=== PATIENT | male | born 1995 | race African-American/Black ===

== ENCOUNTER 2020-07-08 07:52 | Emergency (ER) | payer OTHER ==
[~2020-07-08] VITALS: Ht 175.3 cm; Wt 99.1 kg
[2020-07-08] MEDS ORDERED: methocarbamoL 750 MG TAB PO ONE (08:25)
[2020-07-08] MEDS ORDERED: LIDOCAINE 5% (LIDODERM) PATCH TD ONE (08:25)
[2020-07-08] MEDS ORDERED: KETOROLAC 60MG 2ML VIAL IM ONE (08:25)
[2020-07-08] MEDS ORDERED: PERCOCET 5MG/325MG TAB PO ONE (09:25)
[2020-07-08 10:19] VITALS: BP 113/81
[2020-07-08] MEDS ORDERED: METH-1165 PO (10:29)
[2020-07-08] MEDS ORDERED: LIDO5DIS41 TOP (10:29)
[2020-07-08] MEDS ORDERED: PERC5TAB12 PO (10:30)
[2020-07-08] MEDS ORDERED: **NOTE PATIENT COMMENT** MISC XX SCH (21:00)
== END 2020-07-08 11:04 | disposition home or self-care (01) ==
LOC: EDBD 07:52 → M ED 07:52
DX: S39.92XA Unspecified injury of lower back, initial encounter (principal); X50.0XXA Overexertion from strenuous movement or load, initial encounter; Y92.138 Other place on military base as the place of occurrence of the external cause; Y93.B3 Activity, free weights; Y99.1 Military activity; M54.9 Dorsalgia, unspecified; G89.29 Other chronic pain
CPT/HCPCS: 96372; 99283; J1885

== ENCOUNTER 2020-07-11 10:35 | Emergency (ER) | payer OTHER ==
[~2020-07-11] VITALS: Ht 175.3 cm; Wt 99.1 kg
[~2020-07-11 10:35] MED LIST: LIDO5DIS41 TOP; METH-1165 PO; PERC5TAB12 PO
[2020-07-11] MEDS ORDERED: KETOROLAC 60MG 2ML VIAL IM ONE (13:25)
--- NOTE | 2020-07-11 14:19 | REP ---
INDICATION: injured last week while lifting weights, pain along l-spine COMPARISON: None. TECHNIQUE: AP, lateral, bilateral oblique, and coned-down views of the lumbar spine. FINDINGS: Alignment and lordosis maintained. Vertebral bodies are intact. Disc spaces are relatively normal/age-appropriate. No acute fracture/compression injury or subluxation. No obvious spondylolysis or spondylolisthesis. IMPRESSION: Normal Lumbosacral Spine series. <Electronically signed by Michael Abbasi > 07/11/20 [id number]
[2020-07-11] MEDS ORDERED: NAPR-837 PO (14:44)
[2020-07-11] MEDS ORDERED: PRED20TA PO (14:44)
[2020-07-11 15:18] VITALS: BP 120/82
== END 2020-07-11 16:02 | disposition home or self-care (01) ==
LOC: M ED 10:35
DX: M54.5 Low back pain (principal); Z79.899 Other long term (current) drug therapy; Z79.891 Long term (current) use of opiate analgesic
CPT/HCPCS: 72110; 96372; 99283; J1885

== ENCOUNTER → 2021-03-28 | Outpatient (CLI) | payer OTHER ==
[~2021-03-28] MED LIST changes: +NAPR-837 PO; +PRED20TA PO
[2021-03-28 13:45] LABS: PLATELET COUNT, AUTOMATED 291 10^3/uL (150-450)
[2021-03-28 14:00] LABS: INR 0.95; PROTHROMBIN TIME 13.1 SECONDS (12.7-14.5)
[2021-03-28 14:01] LABS: PARTIAL THROMBOPLASTIN TIME 27.5 SECONDS (25.9-37.0)
[2021-03-28 14:02] LABS: COLLAGEN EPINEPHRINE 90 SECONDS (74-162)
== END ==
LOC: M LAB 12:51
PROVIDERS: ATTEND Physical Medicine & Rehabilitation
DX: M48.061 Spinal stenosis, lumbar region without neurogenic claudication (principal)

== ENCOUNTER → 2022-09-13 | Outpatient (REF) | LOC: M PLALAB 12:58 | PROVIDERS: ATTEND Internal Medicine | DX: R52 Pain, unspecified (principal) ==